=== PATIENT | female | born 1935 | race Caucasian/White ===

== ENCOUNTER 2019-09-02 08:12 | Day surgery (SDC) | payer OTHER ==
[2019-08-31 17:35] VITALS: BMI 27.4
[2019-09-02] MEDS ORDERED: PROPOFOL 20 ML ONE ×2 (09:22)
[2019-09-02] MEDS ORDERED: MIDAZOLAM HCL 2 MG/2 ML SINGLE DOSE VIAL ONE (09:22)
[2019-09-02] MEDS ORDERED: BUPIVACAINE HCL 0.25% 125 MG/50 ML VIAL ONE (10:03)
[2019-09-02] MEDS ORDERED: LIDOCAINE HCL 2% (20ML MULTI-DOSE VIAL) NR ONE (10:04)
[2019-09-02] MEDS ORDERED: ceFAZolin SODIUM 1 GM VIAL ONE (10:36)
[2019-09-02] MEDS ORDERED: BUPIVACAINE HCL/PF 0.25% (2.5MG/ML) 10 ML VIAL IJ ONE (12:04)
[2019-09-02] MEDS ORDERED: ONDANSETRON 4 MG/2 ML VIAL IVPUSH PRN (13:40)
[2019-09-02] MEDS ORDERED: oxyCODONE HCL 5 MG TABLET PO PRN ×2 (13:40)
[2019-09-02] MEDS ORDERED: LACTATED RINGERS SOLUTION 1,000 ML IV SCH (13:45)
[2019-09-02 14:51] VITALS: TEMP 98.4
[2019-09-02 14:55] VITALS: BP 156/87; PULSE 94
[2019-09-02] MEDS ORDERED: DESFLURANE GAS 240 ML BOTTLE IH ONE (15:03)
--- NOTE | 2019-09-07 22:00 | OP ---
DATE OF OPERATION: 09/02/2019 PREOPERATIVE DIAGNOSIS: Left wrist laceration with possible tendon and nerve injury. POSTOPERATIVE DIAGNOSES: 1. Left wrist laceration. 2. Left extensor pollicis brevis and abductor pollicis longus lacerations. 3. Left radial sensory nerve laceration. 4. Retained suture/scar. OPERATIVE PROCEDURE: 1. Exploration of left wrist penetrating wound with debridement of scar tissue and retained suture ball. 2. Repair of left extensor pollicis brevis with interpositional graft. 3. Repair of left abductor pollicis longus with interpositional graft. 4. Repair of left wrist radial sensory nerve. SURGEON: Shahram Silverman MD [employer] WORKER: ANGY Sauer ANESTHESIA: General. COMPLICATIONS: None. ESTIMATED BLOOD LOSS: Minimal. INDICATION FOR PROCEDURE: The patient is an 83-year-old female with severe pain in the left wrist after repair of a deep laceration to the left wrist. She was indicated for operative treatment. Risks, benefits, and alternatives were discussed with patient at length. Proper informed consent was obtained. DESCRIPTION OF PROCEDURE: After proper identification of patient and correct operative site, patient brought to the operating room, placed supine on the table. All prominences were well padded. Esmarch bandage used to exsanguinate the left upper extremity. Tourniquet was inflated to 250 mmHg. Patient's incision was an oblique incision over the first dorsal compartment. The incision was re-created and enlarged proximally and distally within a curvilinear fashion. Dense scar tissue was found within the wrist, and at least 4 or 5 sutures in the same area which appeared to be at least a number 0 suture which appeared to be a monofilament absorbable suture, was found in the volar radial aspect of the wrist. These had been placed around the area of the radial artery, but were not clearly holding anything. This area was debrided, and there was no bleeding. The radial artery was found to be clotted off. The radial sensory nerve was identified and found to be lacerated and adhered in dense scar tissue in the area. The dense scar tissue was debrided and neurolysed, and the radial sensory nerve had adequate length to repair. The nerve ends were debrided. Further dissection was performed carefully through the soft tissues. The first dorsal compartment was opened, and the extensor pollicis brevis and abductor pollicis longus were found to be completely lacerated. There were 2 slips of each tendon and 1 slip of each was harvested for an interpositional graft due to the approximately 1-cm gap between the tendon ends. This tendon graft was used to perform a Pulvertaft weave of both tendons and repairing both tendons. Radial sensory nerve was then repaired using a 6-0 nylon suture in an end-to-end fashion with a tension-free repair. The wound was irrigated and repaired with 5-0 fast-absorbing, plain-gut sutures, and sterile dressings and splint were placed. Patient was reversed from anesthesia and brought to recovery in stable condition. Ronald Albarado, the seed analysis laboratory assistant, was integral throughout the procedure. Procedure could not have been performed without a skilled operative seed analysis laboratory assistant. Herson [id number]
== END 2019-09-02 14:40 | disposition home or self-care (01) ==
LOC: FASU 08:12
PROVIDERS: ATTEND Orthopaedic Surgery Hand Surgery
PROC: 0LU607Z Supplement Left Lower Arm and Wrist Tendon with Autologous Tissue Substitute, Open Approach (ICD-10-PCS; 2019-09-02)
PROC: 01Q60ZZ Repair Radial Nerve, Open Approach (ICD-10-PCS; 2019-09-02)
PROC: 0JBH0ZZ Excision of Left Lower Arm Subcutaneous Tissue and Fascia, Open Approach (ICD-10-PCS; 2019-09-02)
PROC: 0LU607Z Supplement Left Lower Arm and Wrist Tendon with Autologous Tissue Substitute, Open Approach (ICD-10-PCS; principal; 2019-09-02 10:41)
DX: S61.512A Laceration without foreign body of left wrist, initial encounter (principal); S66.222A Laceration of extensor muscle, fascia and tendon of left thumb at wrist and hand level, initial encounter; S66.022A Laceration of long flexor muscle, fascia and tendon of left thumb at wrist and hand level, initial encounter; S64.22XA Injury of radial nerve at wrist and hand level of left arm, initial encounter; M79.5 Residual foreign body in soft tissue; X58.XXXA Exposure to other specified factors, initial encounter; Y93.9 Activity, unspecified; Y92.9 Unspecified place or not applicable
CPT/HCPCS: 94760